=== PATIENT | male | born 1990 | race Hispanic/Latino ===

== ENCOUNTER → 2019-04-15 | Outpatient (CLI) | payer OTHER ==
[~2019-04-15] MED LIST: DIATRIZOATE MEGL/DIATRIZOA SOD 30 ML BTL PO ONE; IOPAMIDOL 370 MG/ML 200 ML INFUS..BTL INJ ONE; SODIUM CHLORIDE 0.9% 50ML 50 ML ONE
--- NOTE | 2019-04-15 11:00 | Diagnostic Imaging Report ---
EXAM: CT Abdomen and Pelvis WITH intravenous contrast INDICATION: Abdominal pain COMPARISON: None. TECHNIQUE: Abdomen and pelvis were scanned utilizing a multidetector helical scanner from the lung base to the pubic symphysis after administration of IV contrast. Coronal and sagittal reformations were obtained. Routine protocol was performed. Scan was performed when during portal venous phase. IV CONTRAST: 100mL of Isovue 370 ORAL CONTRAST: Gastrografin COMPLICATIONS: None RADIATION DOSE: Total DLP: 478.2 mGy*cm Dose modulation, iterative reconstruction, and/or weight based adjustment of the mA/kV was utilized to reduce the radiation dose to as low as reasonably achievable. FINDINGS: LOWER THORAX: Normal. HEPATOBILIARY: Diffuse hypoattenuation of liver parenchyma consistent with hepatic steatosis. No focal liver lesion. No biliary ductal dilatation. The gallbladder appears unremarkable. SPLEEN: No splenomegaly. PANCREAS: No focal masses or ductal dilatation. ADRENALS: No adrenal nodules. KIDNEYS/URETERS: No hydronephrosis, stones, or solid mass lesions. PELVIC ORGANS/BLADDER: Unremarkable. PERITONEUM / RETROPERITONEUM: No free air or fluid. LYMPH NODES: No lymphadenopathy. VESSELS: Unremarkable. GI TRACT: There is diverticulosis of the sigmoid colon. There is rectosigmoid wall thickening in the vicinity of several diverticuli but not immediately associated with one. Adjacent 2.8 x 3.5 cm fluid collection (series 2 image 75) anteroinferior to the rectosigmoid junction. BONES AND SOFT TISSUES: Unremarkable. IMPRESSION: Rectosigmoid wall thickening in the facility of but not directly associated with a diverticulum with adjacent 2.8 x 3.5 cm fluid collection anteroinferior to the rectosigmoid junction is compatible with perforated diverticulitis/colitis with associated small abscess. Due to the small size and difficult location of this fluid collection, it is likely not amenable for percutaneous drainage. Hepatic steatosis. Signed by: Dinora Lr MD on 04/15/2019 10:57 AM
== END ==
LOC: EDSEX 08:46 → CT 08:46
PROVIDERS: ATTEND Internal Medicine Gastroenterology
DX: R10.30 Lower abdominal pain, unspecified (principal)
CPT/HCPCS: 74177; Q9967

== ENCOUNTER → 2019-08-31 | Day surgery (SDC) | payer OTHER ==
[~2019-08-31] MED LIST changes: -DIATRIZOATE MEGL/DIATRIZOA SOD 30 ML BTL PO ONE; +GLUCAGON FOR INJ 1 MG VIAL ONE; +HYOSCYAMINE 0.125 MG TAB ONE; -IOPAMIDOL 370 MG/ML 200 ML INFUS..BTL INJ ONE; +PROPOFOL IV EMULSION 10 MG/ML 50 ML VIAL ONE; -SODIUM CHLORIDE 0.9% 50ML 50 ML ONE
[2019-08-31 16:55] VITALS: BP 110/63
[2019-08-31 17:42] LABS: WBC,FECAL (FECAL LACTOFERRIN) NEGATIVE (NEGATIVE)
--- NOTE | 2019-08-31 21:43 | Operative Report ---
DATE OF PROCEDURE: 08/31/2019 SURGEON: Ramírez Murphy MD PROCEDURE: Colonoscopy with biopsies. INDICATIONS FOR PROCEDURE: Lower abdominal pain, intermittent diarrhea, and bright red blood per rectum. MEDICATIONS: The patient was done under MAC. Please see anesthesiologist's note. DESCRIPTION OF PROCEDURE: With the patient in left lateral decubitus position, flexible fiberoptic Olympus colonoscope was inserted into the rectum with ease and advanced all the way to the cecum. Prep overall was poor with large amount of retained fecal material in the colon. The scope was then withdrawn slowly. Whatever was visualized the mucosa overlying the ascending and the transverse grossly was unremarkable. There were some patchy intense erythema and low-grade edema noted throughout the left colon and the rectum and random biopsies were obtained. The scope was then retroflexed into the distal rectum and small internal hemorrhoids were noted, none of which was actively bleeding. The scope was then straightened out. It was subsequently withdrawn after securing an adequate stool specimen that was sent for the appropriate stool studies. The patient tolerated the procedure well. IMPRESSION: 1. Poor prep. 2. Colitis, mild, patchy, left-sided. Random biopsies were obtained. 3. Proctitis, mild. 4. Internal hemorrhoids, none actively bleeding. PLAN: Follow up histology. Follow up stool studies. Initiate Visbiome one p.o. b.i.d., Bentyl 10 mg one p.o. t.i.d. Ramírez Murphy MD [facility] [place][id number]
[2019-09-01 10:35] LABS: C DIFFICILE TOXIN A&B AMP PROB NEGATIVE (NEGATIVE)
--- OUTSIDE RECORDS SUMMARY | 2019-09-04 12:51 | XMS REPORT ---
Author Author [facility] Address Unknown Phone Unavailable Care Team Providers Care Motor Coach Operator Name Role Phone CLARY CRISTINA Unavailable Unavailable Problems This patient has no known problems. Allergies, Adverse Reactions, Alerts This patient has no known allergies or adverse reactions. Medications This patient has no known medications. Encounters Start Date/Time End Date/Time Encounter Type Admission Type Attending Clinicians Care Facility Care Department Encounter ID 2017-02-05 15:05:38 2017-02-05 15:05:38 Outpatient [facility] [id number] Results Test Description Test Time Test Comments Text Results Atomic Results Result Comments CT ABDOMEN/PELVIS W 2019-04-15 10:45:00 [place] [id number] Patient Name: TASHA GARY MR #: [id number] : 1990 Age/Sex: 29/M Req #: [id number] Adm Physician: Ordered by: CLARY CRISTINA MD Report #: [id number] Location: CT Room/Bed: Procedure: [id number] CT/CT ABDOMEN/PELVIS W Exam Date: 04/15/19 Exam Time: 1020 REPORT STATUS: Signed EXAM: CT Abdomen and Pelvis WITH intravenous contrast INDICATION: Abdominal pain COMPARISON: None. TECHNIQUE: Abdomen and pelvis were scanned utilizing a multidetector helical scanner from the lung base to the pubic symphysis after administration of IV contrast. Coronal and sagittal reformations were obtained. Routine protocol was performed. Scan was performed when during portal venous phase. IV CONTRAST: 100mL of Isovue 370 ORAL CONTRAST: Gastrografin COMPLICATIONS: None RADIATION DOSE: Total DLP: 478.2 mGy*cm Dose modulation, iterative reconstruction, and/or weight based adjustment of the mA/kV was utilized to reduce the radiation dose to as low as reasonably achievable. FINDINGS: LOWER THORAX: Normal. HEPATOBILIARY: Diffuse hypoattenuation of liver parenchyma consistent with hepatic steatosis. No focal liver lesion. No biliary ductal dilatation. The gallbladder appears unremarkable. SPLEEN: No splenomegaly. PANCREAS: No focal masses or ductal dilatation. ADRENALS: No adrenal nodules. KIDNEYS/URETERS: No hydronephrosis, stones, or solid mass lesions. PELVIC ORGANS/BLADDER: Unremarkable. PERITONEUM / RETROPERITONEUM: No free air or fluid. LYMPH NODES: No lymphadenopathy. VESSELS: Unremarkable. GI TRACT: There is diverticulosis of the sigmoid colon. There is rectosigmoid wall thickening in the vicinity of several diverticuli but not immediately associated with one. Adjacent 2.8 x 3.5 cm fluid collection (series 2 image 75) anteroinferior to the rectosigmoid junction. BONES AND SOFT TISSUES: Unremarkable. IMPRESSION: Rectosigmoid wall thickening in the facility of but not directly associated with a diverticulum with adjacent 2.8 x 3.5 cm fluid collection anteroinferior to the rectosigmoid junction is compatible with perforated diverticulitis/colitis with associated small abscess. Due to the small size and difficult location of this fluid collection, it is likely not amenable for percutaneous drainage. Hepatic steatosis. Signed by: Clemente Lr MD on 04/15/2019 10:57 AM Dictated By: CLEMENTE LR MD [id number] Transcribed By: KAYY on 04/15/19 1056 COPY TO: CLARY CRISTINA MD
== END | disposition home or self-care (01) ==
LOC: OR 12:42
PROVIDERS: ATTEND Internal Medicine Gastroenterology
DX: K51.50 Left sided colitis without complications (principal); K62.89 Other specified diseases of anus and rectum; K59.00 Constipation, unspecified; K64.8 Other hemorrhoids
CPT/HCPCS: 45380; 83630; 83993; 87045; 87177; 87328; 87493; J1610; J2704

== ENCOUNTER → 2020-05-18 | Outpatient (CLI) | payer OTHER ==
--- NOTE | 2020-05-18 08:54 | Diagnostic Imaging Report ---
EXAM: Complete Abdominal Ultrasound INDICATION: Abdominal pain ^UPPER ABD PAIN COMPARISON: CT scan 04/15/2019 TECHNIQUE: Transverse and longitudinal images of the upper abdomen were obtained. FINDINGS: Liver: Size: 15.8 cm in the right midclavicular line, normal Appearance: Increased echogenicity, smooth contour Mass: No focal masses Spleen: Size: 12.2 cm in length, normal Echogenicity: Normal Mass: No focal masses Gallbladder: Stones/Sludge: None Wall: 0.2 cm Appearance: No wall thickening, pericholecystic fluid or hydrops. Sonographic Garcia's Sign: Negative Bile Ducts: Intrahepatic Ducts: No dilatation Extrahepatic Ducts: Common bile duct measures 0.3 cm, no dilatation Pancreas: Not well seen Kidneys: Length: Right 11.4 cm Left 10.5 cm Echogenicity: Normal Collecting System: No hydronephrosis Stone: None Cyst/Mass: None Vessels: Aorta: Not well seen Inferior Vena Cava: Not well seen Main Portal Vein: 1.0 cm, normal size with hepatopetal flow. Free Fluid: No ascites or pleural effusion IMPRESSION: Pancreas, inferior vena cava and abdominal aorta not well seen due to overlying bowel gas. Increased hepatic echogenicity could be due to fatty infiltration. Otherwise, unremarkable abdominal ultrasound. Signed by: Dr. Ck Woodward M.D. on 05/18/2020 8:51 AM
== END ==
LOC: US 07:48
PROVIDERS: ATTEND Internal Medicine Gastroenterology
DX: R10.10 Upper abdominal pain, unspecified (principal)
CPT/HCPCS: 76700